=== PATIENT | male | born 1930 | race African-American/Black ===

== ENCOUNTER 2021-09-26 18:02 | Emergency (ER) | payer MEDICARE, MEDICAID ==
[2021-09-26] MEDS ORDERED: Bacitracin 1 PK ONE (18:15)
[2021-09-26] MEDS ORDERED: Oxymetazoline HCl 0.05% (30 ML BOT) ONE (18:15)
[2021-09-26 18:38] LABS: #Basophils 0.1 thou/uL (0.0-0.2); #Eosinphils 0.5 thou/uL (0.0-0.7); #Lymphocytes 1.2 thou/uL (1.20-3.40); #Monocytes 0.5 thou/uL (0.11-0.59); #Neutrophils 3.3 thou/uL (1.40-6.50); %Basophils 1.8 % (0.0-1.0); %Eosinophils 9.5 % (0.0-10.0); %Lymphocytes 21.6 % (21.0-51.0); %Monocytes 8.1 % (0.0-10.0); %Neutrophils 59.1 % (42.0-75.0); Mean Corpuscular HGB CONC 31.8 g/dL (32.0-36.0); Mean Corpuscular Hemoglobin 30.3 pg (27.0-31.0); Mean Corpuscular Volume 95.3 fL (78.0-98.0); Mean Platelet Volume 7.8 fL (7.4-10.4); Platelet Count 200 thou/uL (130-400); RBC Distribution Width 12.8 % (11.5-14.5); Red Blood Cell (RBC) Count 4.31 mill/uL (4.70-6.10); White Blood Cell (WBC) Count 5.5 thou/uL (4.8-10.8)
[2021-09-26 18:43] LABS: Prothrombin Time 13.5 sec (12.0-14.7)
== END 2021-09-26 19:10 | disposition home or self-care (01) ==
LOC: BURERS 18:02
DX: J33.9 Nasal polyp, unspecified (principal); R04.0 Epistaxis
CPT/HCPCS: 36415; 85025; 85610; 85730; 99283